=== PATIENT | female | born 1980 | race Caucasian/White ===

== ENCOUNTER 2017-07-08 19:12 | Emergency (ER) | payer MEDICAID ==
[~2017-07-08] VITALS: Ht 160 cm; Wt 86.2 kg
[~2017-07-08 19:12] MED LIST: ANTIBIOTIC; ANTIBIOTIC O500 U/GM TP; ATIVAN0.5 MG PO; ATORVASTATIN CA10 M1 PO; BACTRIM DS 8001 TA1 PO; BENADRYL25 M2 PO; BUSPAR10 MG; BUSPAR10 MG PO; CEPHALEXIN500 M1 PO; CIPRO500 MG PO; CIPROFLOXACIN500 MG PO; DOXEPIN HCL10 MG PO; EES PO; EES400 MG PO; FANAPT6 MG PO; FLAGYL500 MG PO; HYDROCODONE BIT1 T11 PO; KEFLEX500 MG PO; LOMOTIL 0.025 M1 TA1 PO; MACROBID100 M1 PO; MOTRIN800 MG PO; MULTIPLE VITAMI1 CAP PO; Motrin,Rufen800 MG PO; NEURONTIN100 MG PO; NKHM; OMEPRAZOLE40 MG PO; PHENERGAN W/DM120 ML PO; PHENERGAN25 M1 PO; PHENERGAN25 MG RC; PRILOSEC10 MG PO; PRILOSEC20 MG PO; PROVENTIL0.09 MG/AC IH; PYRIDIUM200 MG PO; SEPTRA DS 800 M1 TAB PO; SEROQUEL200 MG PO; SKELAXIN800 MG PO; TIZANIDINE4 MG PO; ULTRAM50 MG PO; VALIUM10 MG PO; VICODIN 5/500 505 MG PO; VICODIN 500 MG-1 TAB PO; VIIBRYD40; VITAMIN D1000 IU PO; Wellbutrin Xl150 MG PO; XANAX0.25 MG PO; XANAX1 MG PO; ZITHROMAX Z PA250 MG PO; ZOFRAN4 MG PO; ZYRTEC10 M1 PO
[2017-07-08 19:35] LABS: BILIRUBIN NEGATIVE (NEGATIVE); BLOOD NEGATIVE (NEGATIVE); CLARITY CLEAR (CLEAR); COLOR YELLOW (YELLOW); GLUCOSE NEGATIVE (NEGATIVE); KETONE NEGATIVE (NEGATIVE); LEUKO ESTERASE NEGATIVE (NEGATIVE); NITRITE NEGATIVE (NEGATIVE); SPECIFIC GRAVITY <= 1.005 (1.005-1.030); UROBILINOGEN 0.2 E.U./dl (0.2-1.0)
[2017-07-08 19:50] LABS: BACTERIA TRACE
[2017-07-08 19:53] LABS: BASO # 0.1 10*3/uL (0.0-0.1); BASO % 0.4 % (0.0-1.0); EOS # 0.1 10*3/uL (0.0-0.4); EOS % 0.9 % (1.0-4.0); HEMATOCRIT 39.2 % (37.0-47.0); LYMPH % 21.3 % (27.0-41.0); MEAN CELL VOLUME 84.1 fl (81.0-99.0); MEAN CORPUSCULAR HGB 27.9 pg (27.0-31.0); MEAN CORPUSCULAR HGB CONC 33.2 g/dl (33.0-37.0); MONO # 0.6 10*3/uL (0.1-1.0); MONO % 4.4 % (3.0-9.0); NEUT % 72.5 % (47.0-73.0); PLATELET COUNT AUTOMATED 334 10*3/uL (130-400); RED BLOOD COUNT 4.66 10*6/uL (4.10-5.10); RED CELL DISTRI WIDTH 14.7 % (0-14.5); WHITE BLOOD COUNT 13.8 10*3/uL (4.8-10.8)
[2017-07-08 20:12] LABS: ALBUMIN 3.3 gm/dl (3.1-4.5); ALKALINE PHOSPHATASE 142 U/L (45-117); BUN 5 mg/dl (7-24); CHLORIDE 106 mmol/L (98-107); CREATININE 0.57 mg/dL (0.55-1.02); LIPASE 118 U/L (73-393); POTASSIUM 3.6 mmol/L (3.5-5.1); SGOT/AST 26 IU/L (3-35); SGPT/ALT 51 U/L (12-78); SODIUM 136 mmol/L (136-145)
[2017-07-08 21:17] VITALS: BP 148/81
[2017-07-08] MEDS ORDERED: ZITHROMAX250 MG PO (22:59)
[2017-07-08] MEDS ORDERED: ZOFRAN ODT4 MG SL (22:59)
[2017-07-08] MEDS ORDERED: NORCO 5-325 TA1 EACH PO (22:59)
== END 2017-07-08 23:28 | disposition home or self-care (01) ==
LOC: ED 19:12
PROVIDERS: Emergency Medicine Emergency Medical Services
DX: R10.2 Pelvic and perineal pain (principal); J44.9 Chronic obstructive pulmonary disease, unspecified; E78.5 Hyperlipidemia, unspecified; F12.10 Cannabis abuse, uncomplicated; E66.9 Obesity, unspecified; Z98.890 Other specified postprocedural states; Z90.49 Acquired absence of other specified parts of digestive tract; Z98.51 Tubal ligation status; Z79.899 Other long term (current) drug therapy; Z88.6 Allergy status to analgesic agent; Z88.8 Allergy status to other drugs, medicaments and biological substances

== ENCOUNTER 2017-11-10 17:54 | Emergency (ER) | payer MEDICAID ==
[~2017-11-10 17:54] MED LIST changes: +ARIPIPRAZOLE15 MG PO; +DULOXETINE HCL60 MG PO; +NORCO 5-325 TA1 EACH PO; +SEPTDS PO; +UNITHROID25 MCG PO; +VALACYCLOVIR H500 M1 PO; +ZITHROMAX250 MG PO; +ZOFRAN ODT4 MG SL
[2017-11-10 17:56] VITALS: BP 111/67
[2017-11-10 19:02] LABS: BILIRUBIN NEGATIVE (NEGATIVE); BLOOD NEGATIVE (NEGATIVE); CLARITY SL CLOUDY (CLEAR); COLOR YELLOW (YELLOW); GLUCOSE NEGATIVE (NEGATIVE); KETONE NEGATIVE (NEGATIVE); LEUKO ESTERASE 2+ (NEGATIVE); NITRITE NEGATIVE (NEGATIVE); SPECIFIC GRAVITY <= 1.005 (1.005-1.030); UROBILINOGEN 0.2 E.U./dl (0.2-1.0)
[2017-11-10 19:06] LABS: BASO % 0.3 % (0.0-1.0); EOS # 0.2 10*3/uL (0.0-0.4); EOS % 1.1 % (1.0-4.0); HEMATOCRIT 38.4 % (37.0-47.0); HEMOGLOBIN 12.3 g/dl (12.0-16.0); LYMPH # 3.1 10*3/uL (1.3-4.4); MEAN CELL VOLUME 86.9 fl (81.0-99.0); MEAN CORPUSCULAR HGB 27.8 pg (27.0-31.0); MEAN PLATELET VOLUME 10.1 fl (9.6-12.3); MONO # 0.6 10*3/uL (0.1-1.0); MONO % 4.7 % (3.0-9.0); NEUT # 9.1 10*3/uL (2.3-7.9); NEUT % 69.6 % (47.0-73.0); PLATELET COUNT AUTOMATED 313 10*3/uL (130-400); RED BLOOD COUNT 4.42 10*6/uL (4.10-5.10); RED CELL DISTRI WIDTH 14.4 % (0-14.5); WHITE BLOOD COUNT 13.1 10*3/uL (4.8-10.8)
[2017-11-10 19:09] LABS: BACTERIA 1+
[2017-11-10 19:11] LABS: URINE AMPHETAMINES < 1000 (1000ng/ml); URINE BARBITURATES < 200 (200ng/ml); URINE BENZODIAZEPINES > 200 (200ng/ml); URINE CANNABINOIDS (THC) > 50 (50ng/ml); URINE COCAINE < 300 (300ng/ml); URINE METHADONE < 300 (300ng/ml); URINE OPIATES < 300 (300ng/ml); URINE PHENCYCLIDINE < 25 (25ng/ml)
[2017-11-10 19:22] LABS: ALBUMIN 3.4 gm/dl (3.1-4.5); ALKALINE PHOSPHATASE 124 U/L (45-117); BUN 8 mg/dl (7-24); CHLORIDE 105 mmol/L (98-107); CREATININE 0.66 mg/dL (0.55-1.02); POTASSIUM 3.8 mmol/L (3.5-5.1); SGOT/AST 14 IU/L (3-35); SGPT/ALT 26 U/L (12-78); SODIUM 140 mmol/L (136-145); TOTAL PROTEIN 6.9 gm/dL (6.4-8.2)
== END 2017-11-10 21:42 | disposition home or self-care (01) ==
LOC: ED 17:54
PROVIDERS: Emergency Medicine
DX: R56.9 Unspecified convulsions (principal); R51 Headache; F17.200 Nicotine dependence, unspecified, uncomplicated; F10.10 Alcohol abuse, uncomplicated; F41.9 Anxiety disorder, unspecified; J45.909 Unspecified asthma, uncomplicated; F32.9 Major depressive disorder, single episode, unspecified; J44.9 Chronic obstructive pulmonary disease, unspecified; E78.5 Hyperlipidemia, unspecified; Z88.6 Allergy status to analgesic agent; Z88.8 Allergy status to other drugs, medicaments and biological substances; Z79.899 Other long term (current) drug therapy; Z90.49 Acquired absence of other specified parts of digestive tract; Z98.51 Tubal ligation status

== ENCOUNTER 2017-11-30 17:21 | Emergency (ER) | payer MEDICAID ==
[~2017-11-30] VITALS: Wt 86.2 kg
[2017-11-30 17:46] LABS: BASO % 0.3 % (0.0-1.0); EOS # 0.2 10*3/uL (0.0-0.4); EOS % 1.1 % (1.0-4.0); HEMATOCRIT 37.6 % (37.0-47.0); HEMOGLOBIN 12.3 g/dl (12.0-16.0); LYMPH # 2.9 10*3/uL (1.3-4.4); LYMPH % 20.1 % (27.0-41.0); MEAN CELL VOLUME 85.6 fl (81.0-99.0); MEAN CORPUSCULAR HGB CONC 32.7 g/dl (33.0-37.0); MEAN PLATELET VOLUME 9.7 fl (9.6-12.3); MONO # 0.7 10*3/uL (0.1-1.0); MONO % 4.6 % (3.0-9.0); NEUT # 10.6 10*3/uL (2.3-7.9); NEUT % 73.3 % (47.0-73.0); PLATELET COUNT AUTOMATED 313 10*3/uL (130-400); RED BLOOD COUNT 4.39 10*6/uL (4.10-5.10); RED CELL DISTRI WIDTH 14.5 % (0-14.5); WHITE BLOOD COUNT 14.4 10*3/uL (4.8-10.8)
[2017-11-30 18:03] LABS: ALBUMIN 3.4 gm/dl (3.1-4.5); ALKALINE PHOSPHATASE 129 U/L (45-117); BUN 7 mg/dl (7-24); CHLORIDE 103 mmol/L (98-107); POTASSIUM 3.8 mmol/L (3.5-5.1); SGOT/AST 14 IU/L (3-35); SGPT/ALT 20 U/L (12-78); SODIUM 139 mmol/L (136-145); TOTAL PROTEIN 6.8 gm/dL (6.4-8.2)
[2017-11-30 18:05] LABS: TROPONIN I < 0.015 ng/ml (<0.045)
[2017-11-30 18:30] VITALS: BP 105/54
[2017-11-30] MEDS ORDERED: ROBITUSSIN DM 105 ML PO (18:39)
[2017-11-30] MEDS ORDERED: PREDNISONE20 M1 PO (18:39)
== END 2017-11-30 18:41 | disposition home or self-care (01) ==
LOC: ED 17:21
PROVIDERS: Nurse Practitioner Family
DX: J20.9 Acute bronchitis, unspecified (principal); F17.200 Nicotine dependence, unspecified, uncomplicated; J44.9 Chronic obstructive pulmonary disease, unspecified; E78.5 Hyperlipidemia, unspecified; Z98.890 Other specified postprocedural states; Z90.49 Acquired absence of other specified parts of digestive tract; Z98.51 Tubal ligation status; Z79.899 Other long term (current) drug therapy; Z88.6 Allergy status to analgesic agent; Z88.8 Allergy status to other drugs, medicaments and biological substances

== ENCOUNTER 2018-01-11 16:01 | Emergency (ER) | payer MEDICAID ==
[~2018-01-11] VITALS: Ht 160 cm; Wt 86.2 kg
[~2018-01-11 16:01] MED LIST changes: +PREDNISONE20 M1 PO; +ROBITUSSIN DM 105 ML PO
[2018-01-11 16:25] LABS: BILIRUBIN NEGATIVE (NEGATIVE); BLOOD NEGATIVE (NEGATIVE); CLARITY CLEAR (CLEAR); COLOR YELLOW (YELLOW); GLUCOSE NEGATIVE (NEGATIVE); KETONE NEGATIVE (NEGATIVE); LEUKO ESTERASE NEGATIVE (NEGATIVE); NITRITE NEGATIVE (NEGATIVE); SPECIFIC GRAVITY <= 1.005 (1.005-1.030); UROBILINOGEN 0.2 E.U./dl (0.2-1.0)
[2018-01-11 16:35] LABS: URINE AMPHETAMINES < 1000 (1000ng/ml); URINE BARBITURATES < 200 (200ng/ml); URINE BENZODIAZEPINES > 200 (200ng/ml); URINE CANNABINOIDS (THC) < 50 (50ng/ml); URINE COCAINE < 300 (300ng/ml); URINE METHADONE < 300 (300ng/ml); URINE OPIATES < 300 (300ng/ml)
[2018-01-11 16:38] LABS: URINE PHENCYCLIDINE < 25 (25ng/ml)
[2018-01-11 16:39] LABS: BASO # 0.1 10*3/uL (0.0-0.1); BASO % 0.4 % (0.0-1.0); EOS # 0.2 10*3/uL (0.0-0.4); EOS % 1.6 % (1.0-4.0); HEMATOCRIT 40.2 % (37.0-47.0); HEMOGLOBIN 12.8 g/dl (12.0-16.0); LYMPH # 2.5 10*3/uL (1.3-4.4); LYMPH % 20.8 % (27.0-41.0); MEAN CELL VOLUME 87.2 fl (81.0-99.0); MEAN CORPUSCULAR HGB 27.8 pg (27.0-31.0); MEAN CORPUSCULAR HGB CONC 31.8 g/dl (33.0-37.0); MEAN PLATELET VOLUME 9.8 fl (9.6-12.3); MONO # 0.6 10*3/uL (0.1-1.0); MONO % 4.6 % (3.0-9.0); NEUT # 8.7 10*3/uL (2.3-7.9); NEUT % 71.7 % (47.0-73.0); PLATELET COUNT AUTOMATED 337 10*3/uL (130-400); RED BLOOD COUNT 4.61 10*6/uL (4.10-5.10); RED CELL DISTRI WIDTH 14.9 % (0-14.5); WHITE BLOOD COUNT 12.2 10*3/uL (4.8-10.8)
[2018-01-11 16:43] LABS: RBC 0-2 rbc/hpf (0-2)
[2018-01-11 16:56] LABS: ALBUMIN 3.5 gm/dl (3.1-4.5); ALKALINE PHOSPHATASE 135 U/L (45-117); B-hCG (QUALITATIVE) NEGATIVE (NEGATIVE); BUN 7 mg/dl (7-24); CHLORIDE 104 mmol/L (98-107); CREATININE 0.68 mg/dL (0.55-1.02); POTASSIUM 3.9 mmol/L (3.5-5.1); SGOT/AST 21 IU/L (3-35); SGPT/ALT 41 U/L (12-78); SODIUM 138 mmol/L (136-145); TOTAL PROTEIN 7.1 gm/dL (6.4-8.2)
[2018-01-11 16:58] LABS: TROPONIN I < 0.015 ng/ml (<0.045)
[2018-01-11 17:10] VITALS: BP 128/68
== END 2018-01-11 17:41 | disposition home or self-care (01) ==
LOC: ED 16:01
PROVIDERS: Physician Assistant
DX: F41.9 Anxiety disorder, unspecified (principal); F17.200 Nicotine dependence, unspecified, uncomplicated; Z98.890 Other specified postprocedural states; Z90.49 Acquired absence of other specified parts of digestive tract; Z98.51 Tubal ligation status; Z79.899 Other long term (current) drug therapy; Z88.6 Allergy status to analgesic agent; Z88.8 Allergy status to other drugs, medicaments and biological substances

== ENCOUNTER 2018-05-21 19:04 | Emergency (ER) | payer MEDICAID ==
[~2018-05-21] VITALS: Ht 160 cm; Wt 89.4 kg
[~2018-05-21 19:04] MED LIST changes: +ABILIFY20 MG PO; -ARIPIPRAZOLE15 MG PO; -NEURONTIN100 MG PO; +NEURONTIN400 MG PO; +PROTONIX40 MG PO; -UNITHROID25 MCG PO; +UNITHROID50 MCG PO; +VALACYCLOVIR500 M1 PO
[2018-05-21 19:09] VITALS: BP 125/70
== END 2018-05-21 21:22 | disposition home or self-care (01) ==
LOC: ED 19:04
DX: S90.512A Abrasion, left ankle, initial encounter (principal); M25.522 Pain in left elbow; F17.200 Nicotine dependence, unspecified, uncomplicated; Z88.6 Allergy status to analgesic agent; Z88.8 Allergy status to other drugs, medicaments and biological substances; Z79.899 Other long term (current) drug therapy; V19.9XXA Pedal cyclist (driver) (passenger) injured in unspecified traffic accident, initial encounter; Y93.89 Activity, other specified; Y92.89 Other specified places as the place of occurrence of the external cause; Y99.8 Other external cause status

== ENCOUNTER 2018-06-11 04:16 | Inpatient (IN) | payer MEDICAID ==
[~2018-06-11] VITALS: Ht 160 cm; Wt 92.3 kg
[2018-06-11] VITALS (7 sets, daily range): BP systolic 103–119; BP diastolic 40–70
--- NOTE | ~2018-06-11 | EKG ---
[place], [place] ELECTROCARDIOGRAM REPORT NAME: MOE AUSTIN UNIT #: [id number] ROOM: 412 DOCTOR: GRIFFIN DRAFT REPORT BIRTHDATE: [birth year] [facility] Test Date: 2018-06-11 Test Time: 04:29:25 Pat Name: MOE AUSTIN Department: Room: 412 Gender: F Thermocouple Tester: Daysi Dalal : 1980 Requested By: SHEREE WHITE Order Number: [id number] Reading MD: Ming Tinsley MD Measurements Intervals [place] Rate: 75 P: 48 [place]: 173 QRS: 59 QRSD: 85 T: 47 QT: 403 QTc: 451 Interpretive Statements Sinus rhythm Borderline T abnormalities, anterior leads Compared to ECG 05/04/2018 15:46:32 No significant changes Electronically Signed On 06-11-2018 12:11:57 PDT by Ming Tinsley MD CM:EKGRPT:ELECTROCARDIOGRAM REPORT 0429 1211 SHEREE FREEMAN DRAFT REPORT SHEREE WHITE DO
--- NOTE | ~2018-06-11 | EKG ---
[place], [place] ELECTROCARDIOGRAM REPORT NAME: MOE AUSTIN UNIT #: [id number] ROOM: 412 DOCTOR: GRIFFIN DRAFT REPORT BIRTHDATE: [birth year] [facility] Test Date: 2018-06-11 Test Time: 07:08:16 Pat Name: MOE AUSTIN Department: Room: 412 Gender: F Car Spotter: Brittany Purcell : 1980 Requested By: SHEREE WHITE Order Number: [id number] Reading MD: Ming Tinsley MD Measurements Intervals [place] Rate: 72 P: 58 [place]: 173 QRS: 38 QRSD: 97 T: 71 QT: 409 QTc: 448 Interpretive Statements Sinus rhythm Borderline T abnormalities, anterior leads Compared to ECG 05/04/2018 15:46:32 No significant changes Electronically Signed On 06-11-2018 12:15:53 PDT by Ming Tinsley MD CM:EKGRPT:ELECTROCARDIOGRAM REPORT 0708 1215 SHEREE FREEMAN DRAFT REPORT SHEREE WHITE DO
--- NOTE | ~2018-06-11 | EKG ---
[place], [place] ELECTROCARDIOGRAM REPORT NAME: MEO AUSTIN UNIT #: [id number] ROOM: 412 DOCTOR: GRIFFIN DRAFT REPORT BIRTHDATE: [birth year] [facility] Test Date: 2018-06-11 Test Time: 10:27:47 Pat Name: MOE AUSTIN Department: Room: 412 Gender: F Rn Assessment: Brittany Purecll : 1980 Requested By: SHEREE WHITE Order Number: [id number] Reading MD: Ming Tinsley MD Measurements Intervals [place] Rate: 100 P: 48 [place]: 174 QRS: 43 QRSD: 82 T: 47 QT: 394 QTc: Interpretive Statements Sinus tachycardia Compared to ECG 05/04/2018 15:46:32 Sinus rhythm no longer present T-wave abnormality still present Electronically Signed On 06-12-2018 7:52:46 PDT by Ming Tinsley MD CM:EKGRPT:ELECTROCARDIOGRAM REPORT 1027 0752 SHEREE FREEMAN DRAFT REPORT SHEREE WHITE DO
--- NOTE | ~2018-06-11 | CON ---
[place], [place] REPORT OF CONSULTATION NAME: MEO AUSTIN [facility] #: [id number] UNIT #: [id number] ROOM: 412 DOCTOR: MIGNON CRAIG MD BIRTHDATE: [birth year] DOS: 06/11/2018 REASON FOR CONSULTATION: Chest pain. CLINICAL HISTORY: The patient is a 37-year-old patient with history of COPD, obesity, admitted for chest pain. Apparently, she woke up with chest pain at home, left-sided chest pain at rest, sharp pain. The pain is sharp with some radiation right to the arm. No associated nausea, diaphoresis, or shortness of breath, and no dizziness, no syncope. The patient had been having some recent cough intermittently most of the day, and also having some dizziness and sweating. She was in the hospital about a month ago and underwent exercise nuclear stress test, which was nonischemic. She denies exertional chest pains or dizziness. No palpitations, no PND, no orthopnea. She smokes about half pack a day. Cardiology was consulted for further recommendation due to her left-sided chest pain, which is at rest. No fever and chills. No nausea, vomiting, diarrhea. No headache. No tingling, numbness or weakness. No bladder or bowel symptoms. REVIEW OF SYSTEMS: Review of the 10 system negative except as mentioned above. PAST MEDICAL HISTORY: 1. COPD. 2. Asthma. 3. Non-morbid obesity. 4. Seizures. 5. Depression. 6. Hypothyroidism and dyslipidemia. PAST SURGICAL HISTORY: History of , history of appendicectomy, history of cholecystectomy. ALLERGIES: THE PATIENT IS ALLERGIC TO TYLENOL AND DARVOCET. SOCIAL HISTORY: The patient does not use drugs, social drinker, does smoke half pack a day of cigarettes. FAMILY HISTORY: Father in his mid 40s of diabetes. Mother is alive, had breast cancer. HOME MEDICATIONS: Reviewed. PHYSICAL EXAMINATION: VITAL SIGNS: Blood pressure 103/53, pulse 85, respirations 19, weight 92.2 kilos with a BMI of 36. GENERAL: Alert, comfortable, in no acute distress. NECK: Supple. No distended neck veins. No carotid bruit. CHEST: Symmetrical, nontender. LUNGS: Clear to auscultation bilaterally. HEART: Regular rhythm. No S3. No palpable thrills. ABDOMEN: Benign, obese, nontender. Bowel sounds normal. [place], [place] REPORT OF CONSULTATION NAME: MOE AUSTIN UNIT #: [id number] ROOM: 412 DOCTOR: MIGNON CRAIG MD BIRTHDATE: [birth year] EXTREMITIES: Showed no edema. Distal pulses palpable. SKIN: Warm and dry. No cyanosis, no clubbing. RECTAL: Deferred. GENITOURINARY: Deferred. NEUROLOGIC: The patient is alert, oriented. No focal neurologic deficit. REVIEW OF THE DIAGNOSTIC TESTS: Her EKG shows sinus rhythm, nonspecific ST changes. LABORATORY DATA: Reviewed. CBC, chemistry, cardiac enzymes reviewed. Chest x-ray is unremarkable. Exercise nuclear stress test in April 2018 was nonischemic. Patient did treadmill without chest pain and a low risk Gould treadmill score. IMPRESSION: 1. Atypical chest pain, myocardial infarction ruled out, nonischemic stress test April 2018. 2. Cough, positive due to her chronic obstructive pulmonary disease exacerbation and tobacco-related bronchitis. 3. Non-morbid obesity. 4. Tobacco smoking. 5. Seizure disorder. 6. Acid reflux. 7. Dyslipidemia. RECOMMENDATIONS: 1. The patient has nonexertional chest pain. Chest pain appears to be atypical, mostly musculoskeletal from her cough. 2. Risk factor modification to quit smoking and also diet, exercise, weight loss discussed. 3. No further cardiac testing at this time. 4. Cardiology will sign off and please call us if needed. MIGNON CRAIG MD CM:CONSTR:REPORT OF CONSULTATION 1213 08/04/18 0813 interface
[2018-06-11 04:40] LABS: BASO # 0.1 10*3/uL (0.0-0.1); BASO % 0.4 % (0.0-1.0); EOS # 0.2 10*3/uL (0.0-0.4); EOS % 1.7 % (1.0-4.0); HEMATOCRIT 36.8 % (37.0-47.0); HEMOGLOBIN 11.6 g/dl (12.0-16.0); LYMPH % 24.2 % (27.0-41.0); MEAN CELL VOLUME 85.2 fl (81.0-99.0); MEAN CORPUSCULAR HGB 26.9 pg (27.0-31.0); MEAN CORPUSCULAR HGB CONC 31.5 g/dl (33.0-37.0); MEAN PLATELET VOLUME 9.4 fl (9.6-12.3); MONO # 0.5 10*3/uL (0.1-1.0); NEUT # 8.5 10*3/uL (2.3-7.9); PLATELET COUNT AUTOMATED 364 10*3/uL (130-400); RED BLOOD COUNT 4.32 10*6/uL (4.10-5.10); RED CELL DISTRI WIDTH 14.6 % (0-14.5); WHITE BLOOD COUNT 12.3 10*3/uL (4.8-10.8)
[2018-06-11 04:55] LABS: ALBUMIN 3.2 gm/dl (3.1-4.5); ALKALINE PHOSPHATASE 121 U/L (45-117); BUN 5 mg/dl (7-24); CHLORIDE 106 mmol/L (98-107); CREATININE 0.69 mg/dL (0.55-1.02); POTASSIUM 3.4 mmol/L (3.5-5.1); SGOT/AST 17 IU/L (3-35); SGPT/ALT 28 U/L (12-78); SODIUM 140 mmol/L (136-145); TOTAL PROTEIN 6.8 gm/dL (6.4-8.2)
[2018-06-11 04:58] LABS: TROPONIN I < 0.015 ng/ml (<0.045)
[2018-06-11 05:06] LABS: ACT PARTIAL THROMBO TIME 25.8 SECONDS (20.8-31.5); INTERNATIONAL NORM RATIO 0.9 (2.0-3.5)
[2018-06-11] MEDS ORDERED: PROAIR HFA8.5 GM INH (06:09)
[2018-06-11] MEDS ORDERED: SYMB80 INH (06:10)
[2018-06-11 07:22] LABS: BILIRUBIN NEGATIVE (NEGATIVE); BLOOD NEGATIVE (NEGATIVE); CLARITY SL CLOUDY (CLEAR); COLOR YELLOW (YELLOW); GLUCOSE NEGATIVE (NEGATIVE); KETONE NEGATIVE (NEGATIVE); LEUKO ESTERASE NEGATIVE (NEGATIVE); NITRITE POSITIVE (NEGATIVE); SPECIFIC GRAVITY <= 1.005 (1.005-1.030); UROBILINOGEN 0.2 E.U./dl (0.2-1.0)
[2018-06-11 08:00] LABS: BACTERIA 1+
[2018-06-12] VITALS: BP 120/65
[2018-06-12 06:39] LABS: HEMATOCRIT 38.9 % (37.0-47.0); HEMOGLOBIN 12.2 g/dl (12.0-16.0); MEAN CELL VOLUME 86.4 fl (81.0-99.0); MEAN CORPUSCULAR HGB 27.1 pg (27.0-31.0); MEAN CORPUSCULAR HGB CONC 31.4 g/dl (33.0-37.0); MEAN PLATELET VOLUME 9.7 fl (9.6-12.3); PLATELET COUNT AUTOMATED 419 10*3/uL (130-400); WHITE BLOOD COUNT 20.1 10*3/uL (4.8-10.8)
[2018-06-12 06:46] LABS: BUN 9 mg/dl (7-24); CHLORIDE 104 mmol/L (98-107); CHOLESTEROL 251 mg/dL (<200); CREATININE 0.84 mg/dL (0.55-1.02); PHOSPHOROUS 2.7 mg/dL (2.5-4.9); SODIUM 138 mmol/L (136-145); TRIGLYCERIDES 180 mg/dl (<150); VLDL CHOLESTEROL 36 mg/dL (6-40)
[2018-06-12 06:54] LABS: FREE T4 0.94 ng/dl (0.76-1.46); HDL CHOLESTEROL 29 mg/dl (40-60); LDL CHOLESTEROL 186 mg/dL (9-159); THYROID STIM HORMONE (HS) 0.584 uIU/ml (0.358-4.75)
[2018-06-12 06:58] LABS: POTASSIUM 4.7 mmol/L (3.5-5.1)
[2018-06-12 07:23] LABS: PLATELET SUFFICIENCY HIGH (NORMAL); TOTAL CELLS COUNTED 100 #CELLS
[2018-06-12 07:34] LABS: VITAMIN D, 25-HYDROXY 28.8 ng/mL (30-100)
[2018-06-12 08:00] VITALS: BP 113/56
[2018-06-12 12:00] VITALS: BP 105/60
[2018-06-12 16:00] VITALS: BP 103/69
[2018-06-12 20:00] VITALS: BP 110/62
[2018-06-13] VITALS: BP 132/74
[2018-06-13 08:00] VITALS: BP 121/75
[2018-06-13] MEDS ORDERED: PREDNISONE10 MG PO (11:36)
[2018-06-13] MEDS ORDERED: NATURE'S BLEND F1 MG PO (11:36)
[2018-06-13] MEDS ORDERED: VITAMIN D-32000 UNIT PO (11:36)
[2018-06-13] MEDS ORDERED: DOXYCYCLINE100 M3 PO (11:36)
[2018-06-13 12:00] VITALS: BP 111/68
== END 2018-06-13 12:19 | disposition home or self-care (01) | DRG 191 ==
LOC: ED 04:16 → EDHOLD 05:25 → 4E 05:25
PROVIDERS: Emergency Medicine; Internal Medicine
DX: J44.1 Chronic obstructive pulmonary disease with (acute) exacerbation (principal); N12 Tubulo-interstitial nephritis, not specified as acute or chronic; M94.0 Chondrocostal junction syndrome [Tietze]; D72.829 Elevated white blood cell count, unspecified; D64.9 Anemia, unspecified; E87.6 Hypokalemia; R73.9 Hyperglycemia, unspecified; R74.8 Abnormal levels of other serum enzymes; J45.909 Unspecified asthma, uncomplicated; F41.9 Anxiety disorder, unspecified; K21.9 Gastro-esophageal reflux disease without esophagitis; E55.9 Vitamin D deficiency, unspecified; E53.8 Deficiency of other specified B group vitamins; F32.9 Major depressive disorder, single episode, unspecified; E66.01 Morbid (severe) obesity due to excess calories; E03.9 Hypothyroidism, unspecified; E78.5 Hyperlipidemia, unspecified; G40.909 Epilepsy, unspecified, not intractable, without status epilepticus; R07.89 Other chest pain; Z78.9 Other specified health status; Z88.8 Allergy status to other drugs, medicaments and biological substances; Z79.899 Other long term (current) drug therapy; Z90.49 Acquired absence of other specified parts of digestive tract; Z98.51 Tubal ligation status; Z83.3 Family history of diabetes mellitus; Z80.3 Family history of malignant neoplasm of breast; Z71.6 Tobacco abuse counseling; Z72.0 Tobacco use; Z82.5 Family history of asthma and other chronic lower respiratory diseases; Z82.0 Family history of epilepsy and other diseases of the nervous system; Z68.36 Body mass index [BMI] 36.0-36.9, adult

== ENCOUNTER 2018-06-22 14:38 | Emergency (ER) | payer MEDICAID ==
[~2018-06-22] VITALS: Ht 160 cm; Wt 93.9 kg
--- NOTE | ~2018-06-22 | EKG ---
[place], [place] ELECTROCARDIOGRAM REPORT NAME: MOE AUSTIN UNIT #: [id number] ROOM: DOCTOR: GRIFFIN DRAFT REPORT BIRTHDATE: [birth year] [facility] Test Date: 2018-06-22 Test Time: 15:19:24 Pat Name: MOE AUSTIN Department: Room: Gender: F Sales Correspondent: MAGEN : 1980 Requested By: ABDI HOLDER PA-C Order Number: [id number] Reading MD: Measurements Intervals [place] Rate: 89 P: 37 [place]: 144 QRS: 47 QRSD: 92 T: 58 QT: 329 QTc: 401 Interpretive Statements Sinus rhythm Compared to ECG 06/11/2018 10:27:47 Sinus tachycardia no longer present CM:EKGRPT:ELECTROCARDIOGRAM REPORT 1519 1221 [facility] ABDI HOLDER PA-C
[~2018-06-22 14:38] MED LIST changes: +DOXYCYCLINE100 M3 PO; +NATURE'S BLEND F1 MG PO; +PREDNISONE10 MG PO; +PROAIR HFA8.5 GM INH; +SYMB80 INH; +VITAMIN D-32000 UNIT PO
[2018-06-22 15:22] LABS: HEMATOCRIT 40.6 % (37.0-47.0); HEMOGLOBIN 12.8 g/dl (12.0-16.0); MEAN CELL VOLUME 86.4 fl (81.0-99.0); MEAN CORPUSCULAR HGB 27.2 pg (27.0-31.0); MEAN CORPUSCULAR HGB CONC 31.5 g/dl (33.0-37.0); MEAN PLATELET VOLUME 9.8 fl (9.6-12.3); PLATELET COUNT AUTOMATED 337 10*3/uL (130-400); RED CELL DISTRI WIDTH 16.3 % (0-14.5); WHITE BLOOD COUNT 25.2 10*3/uL (4.8-10.8)
[2018-06-22 15:29] LABS: INTERNATIONAL NORM RATIO 0.9 (2.0-3.5)
[2018-06-22 15:37] LABS: ALBUMIN 3.4 gm/dl (3.1-4.5); ALKALINE PHOSPHATASE 105 U/L (45-117); BUN 11 mg/dl (7-24); CHLORIDE 103 mmol/L (98-107); CREATININE 0.73 mg/dL (0.55-1.02); POTASSIUM 4.2 mmol/L (3.5-5.1); SGOT/AST 11 IU/L (3-35); SGPT/ALT 43 U/L (12-78); SODIUM 137 mmol/L (136-145)
[2018-06-22 15:41] LABS: PLATELET SUFFICIENCY NORMAL (NORMAL); TOTAL CELLS COUNTED 100 #CELLS
[2018-06-22 15:42] LABS: BURR CELLS FEW; POLYCHROMASIA SLIGHT
[2018-06-22 15:50] LABS: BILIRUBIN NEGATIVE (NEGATIVE); BLOOD NEGATIVE (NEGATIVE); CLARITY CLEAR (CLEAR); COLOR YELLOW (YELLOW); GLUCOSE 2+ (NEGATIVE); KETONE NEGATIVE (NEGATIVE); LEUKO ESTERASE NEGATIVE (NEGATIVE); NITRITE NEGATIVE (NEGATIVE); SPECIFIC GRAVITY >= 1.030 (1.005-1.030); UROBILINOGEN 0.2 E.U./dl (0.2-1.0)
[2018-06-22 15:51] LABS: TROPONIN I < 0.015 ng/ml (<0.045)
[2018-06-22 15:59] LABS: URINE AMPHETAMINES < 1000 (1000ng/ml); URINE BARBITURATES < 200 (200ng/ml); URINE BENZODIAZEPINES > 200 (200ng/ml); URINE CANNABINOIDS (THC) < 50 (50ng/ml); URINE COCAINE < 300 (300ng/ml); URINE METHADONE < 300 (300ng/ml); URINE OPIATES < 300 (300ng/ml)
[2018-06-22 16:00] LABS: URINE PHENCYCLIDINE < 25 (25ng/ml)
[2018-06-22 16:10] LABS: EPITHELIAL CELLS 30-35
[2018-06-22 16:11] LABS: BACTERIA TRACE; WBC 0-2 wbc/hpf (0-5)
[2018-06-22 16:42] VITALS: BP 118/69
[2018-06-22] MEDS ORDERED: HYDROXYZINE HCL25 MG PO (16:53)
== END 2018-06-22 17:02 | disposition home or self-care (01) ==
LOC: ED 14:38
PROVIDERS: Physician Assistant
DX: F41.0 Panic disorder [episodic paroxysmal anxiety] (principal); J44.9 Chronic obstructive pulmonary disease, unspecified; F17.200 Nicotine dependence, unspecified, uncomplicated; Z88.6 Allergy status to analgesic agent; Z79.899 Other long term (current) drug therapy; Z90.49 Acquired absence of other specified parts of digestive tract; Z98.51 Tubal ligation status

== ENCOUNTER 2018-08-29 20:42 | Emergency (ER) | payer MEDICAID ==
[~2018-08-29] VITALS: Ht 160 cm; Wt 95.3 kg
--- NOTE | ~2018-08-29 | EKG ---
[place], [place] ELECTROCARDIOGRAM REPORT NAME: MOE AUSTIN UNIT #: [id number] ROOM: DOCTOR: EPIPHANY DRAFT REPORT BIRTHDATE: [birth year] [facility] Test Date: 2018-08-29 Test Time: 21:10:56 Pat Name: MOE AUSTIN Department: ER Room: Gender: F Division Field Inspector: Sandi Sullivan : 1980 Requested By: HONORIO LUNA Order Number: [id number] Reading MD: Jerome Arreola MD Measurements Intervals [place] Rate: 88 P: 55 [place]: 145 QRS: 52 QRSD: 82 T: 52 QT: 363 QTc: 440 Interpretive Statements Sinus rhythm Low voltage, precordial leads Borderline T abnormalities, anterior leads Compared to ECG 07/28/2018 22:14:46 T-wave abnormality now present Electronically Signed On 09-01-2018 12:32:19 PST by Jerome Arreola MD CM:EKGRPT:ELECTROCARDIOGRAM REPORT 1232 HONORIO LUNA MD EPIPHANY DRAFT REPORT HONORIO LUNA MD
[~2018-08-29 20:42] MED LIST changes: +HYDROXYZINE HCL25 MG PO
[2018-08-29] MEDS ORDERED: ATIVAN1 MG PO ×2 (20:46→23:25)
[2018-08-29 21:50] LABS: ALBUMIN 3.5 gm/dl (3.1-4.5); ALKALINE PHOSPHATASE 131 U/L (45-117); BUN 2 mg/dl (7-24); CHLORIDE 104 mmol/L (98-107); CREATININE 0.66 mg/dL (0.55-1.02); LIPASE 90 U/L (73-393); POTASSIUM 3.5 mmol/L (3.5-5.1); SGOT/AST 35 IU/L (3-35); SGPT/ALT 62 U/L (12-78); SODIUM 140 mmol/L (136-145); TOTAL PROTEIN 6.9 gm/dL (6.4-8.2)
[2018-08-29 21:55] LABS: TROPONIN I < 0.015 ng/ml (<0.045)
[2018-08-29 22:00] LABS: BILIRUBIN NEGATIVE (NEGATIVE); BLOOD NEGATIVE (NEGATIVE); CLARITY CLEAR (CLEAR); COLOR YELLOW (YELLOW); GLUCOSE NEGATIVE (NEGATIVE); KETONE NEGATIVE (NEGATIVE); LEUKO ESTERASE NEGATIVE (NEGATIVE); NITRITE NEGATIVE (NEGATIVE); PH 6.5 (5.0-9.0); SPECIFIC GRAVITY <= 1.005 (1.005-1.030); UROBILINOGEN 0.2 E.U./dl (0.2-1.0)
[2018-08-29 22:07] LABS: WBC 0-2 wbc/hpf (0-5)
[2018-08-29 22:08] LABS: BASO # 0.1 10*3/uL (0.0-0.1); BASO % 0.4 % (0.0-1.0); EOS # 0.2 10*3/uL (0.0-0.4); EOS % 1.6 % (1.0-4.0); HEMOGLOBIN 12.8 g/dl (12.0-16.0); LYMPH # 3.4 10*3/uL (1.3-4.4); LYMPH % 25.6 % (27.0-41.0); MEAN CORPUSCULAR HGB 26.9 pg (27.0-31.0); MONO # 0.6 10*3/uL (0.1-1.0); MONO % 4.2 % (3.0-9.0); NEUT # 8.9 10*3/uL (2.3-7.9); NEUT % 67.7 % (47.0-73.0); PLATELET COUNT AUTOMATED 420 10*3/uL (130-400); RED BLOOD COUNT 4.76 10*6/uL (4.10-5.10); RED CELL DISTRI WIDTH 14.6 % (0-14.5); WHITE BLOOD COUNT 13.1 10*3/uL (4.8-10.8)
[2018-08-29 22:43] VITALS: BP 133/86
== END 2018-08-29 23:27 | disposition home or self-care (01) ==
LOC: ED 20:42
PROVIDERS: Emergency Medicine Emergency Medical Services
DX: R56.9 Unspecified convulsions (principal); F41.9 Anxiety disorder, unspecified; F43.10 Post-traumatic stress disorder, unspecified; R51 Headache; J44.9 Chronic obstructive pulmonary disease, unspecified; K21.9 Gastro-esophageal reflux disease without esophagitis; E78.5 Hyperlipidemia, unspecified; E03.9 Hypothyroidism, unspecified; E66.9 Obesity, unspecified; F17.200 Nicotine dependence, unspecified, uncomplicated; Z88.6 Allergy status to analgesic agent; Z88.8 Allergy status to other drugs, medicaments and biological substances; Z79.2 Long term (current) use of antibiotics; Z79.899 Other long term (current) drug therapy; Z90.49 Acquired absence of other specified parts of digestive tract

== ENCOUNTER 2018-10-03 14:24 | Emergency (ER) | payer MEDICAID ==
[~2018-10-03] VITALS: Ht 160 cm; Wt 92.5 kg
--- NOTE | ~2018-10-03 | EKG ---
[place], [place] ELECTROCARDIOGRAM REPORT NAME: MOE AUSTIN UNIT #: [id number] ROOM: DOCTOR: EPIPHANY DRAFT REPORT BIRTHDATE: [birth year] [facility] Test Date: 2018-10-03 Test Time: 15:00:23 Pat Name: MOE AUSTIN Department: ER Room: Gender: F Tax Collector: Veronica Richey : 1980 Requested By: NOVA MONTALVO Order Number: [id number] Reading MD: Osiel Dunlap MD Measurements Intervals [place] Rate: 87 P: 26 [place]: 161 QRS: 41 QRSD: 82 T: 42 QT: 315 QTc: 379 Interpretive Statements Sinus rhythm Borderline T abnormalities, anterior leads Compared to ECG 08/29/2018 21:10:56 No significant changes Electronically Signed On 10-06-2018 15:33:17 PST by Osiel Dunlap MD CM:EKGRPT:ELECTROCARDIOGRAM REPORT 1500 1533 NOVA MONTALVO EPIPHANY DRAFT REPORT NOVA MONTALVO
[2018-10-03 14:24] VITALS: BP 150/87
[~2018-10-03 14:24] MED LIST changes: +ATIVAN1 MG PO
[2018-10-03 14:58] LABS: BILIRUBIN NEGATIVE (NEGATIVE); BLOOD NEGATIVE (NEGATIVE); CLARITY CLEAR (CLEAR); COLOR YELLOW (YELLOW); GLUCOSE NEGATIVE (NEGATIVE); KETONE NEGATIVE (NEGATIVE); LEUKO ESTERASE NEGATIVE (NEGATIVE); NITRITE NEGATIVE (NEGATIVE); PH 6.5 (5.0-9.0); SPECIFIC GRAVITY <= 1.005 (1.005-1.030); UROBILINOGEN 0.2 E.U./dl (0.2-1.0)
[2018-10-03 15:04] LABS: BACTERIA 1+; RBC 0-2 rbc/hpf (0-2)
[2018-10-03 15:05] LABS: URINE AMPHETAMINES < 1000 (1000ng/ml); URINE BARBITURATES < 200 (200ng/ml); URINE BENZODIAZEPINES < 200 (200ng/ml); URINE CANNABINOIDS (THC) < 50 (50ng/ml); URINE COCAINE < 300 (300ng/ml); URINE METHADONE < 300 (300ng/ml); URINE OPIATES < 300 (300ng/ml)
[2018-10-03 15:06] LABS: URINE PHENCYCLIDINE < 25 (25ng/ml)
[2018-10-03 15:07] LABS: BASO # 0.1 10*3/uL (0.0-0.1); BASO % 0.4 % (0.0-1.0); EOS # 0.1 10*3/uL (0.0-0.4); EOS % 0.9 % (1.0-4.0); HEMATOCRIT 42.2 % (37.0-47.0); HEMOGLOBIN 13.5 g/dl (12.0-16.0); LYMPH # 3.1 10*3/uL (1.3-4.4); LYMPH % 22.7 % (27.0-41.0); MEAN CELL VOLUME 83.7 fl (81.0-99.0); MEAN CORPUSCULAR HGB 26.8 pg (27.0-31.0); MEAN PLATELET VOLUME 9.9 fl (9.6-12.3); MONO # 0.7 10*3/uL (0.1-1.0); MONO % 5.1 % (3.0-9.0); NEUT # 9.7 10*3/uL (2.3-7.9); NEUT % 70.4 % (47.0-73.0); PLATELET COUNT AUTOMATED 446 10*3/uL (130-400); RED BLOOD COUNT 5.04 10*6/uL (4.10-5.10); RED CELL DISTRI WIDTH 14.4 % (0-14.5); WHITE BLOOD COUNT 13.8 10*3/uL (4.8-10.8)
[2018-10-03 15:19] LABS: ACT PARTIAL THROMBO TIME 23.8 SECONDS (20.8-31.5)
[2018-10-03 15:23] LABS: ALBUMIN 3.9 gm/dl (3.1-4.5); ALKALINE PHOSPHATASE 145 U/L (45-117); BUN 4 mg/dl (7-24); CHLORIDE 105 mmol/L (98-107); CREATININE 0.61 mg/dL (0.55-1.02); POTASSIUM 3.9 mmol/L (3.5-5.1); SGOT/AST 41 IU/L (3-35); SGPT/ALT 53 U/L (12-78); SODIUM 138 mmol/L (136-145); TOTAL PROTEIN 7.7 gm/dL (6.4-8.2)
[2018-10-03 15:24] LABS: TROPONIN I < 0.015 ng/ml (<0.045)
== END 2018-10-03 16:28 | disposition home or self-care (01) ==
LOC: ED 14:24
PROVIDERS: Nurse Practitioner Family
DX: G40.909 Epilepsy, unspecified, not intractable, without status epilepticus (principal); R03.0 Elevated blood-pressure reading, without diagnosis of hypertension; E78.5 Hyperlipidemia, unspecified; J44.9 Chronic obstructive pulmonary disease, unspecified; E66.9 Obesity, unspecified; E03.9 Hypothyroidism, unspecified; K21.9 Gastro-esophageal reflux disease without esophagitis; F17.200 Nicotine dependence, unspecified, uncomplicated; Z68.35 Body mass index [BMI] 35.0-35.9, adult; Z79.899 Other long term (current) drug therapy

== ENCOUNTER 2019-04-08 19:47 | Emergency (ER) | payer MEDICAID ==
[~2019-04-08] VITALS: Ht 160 cm; Wt 90.7 kg
--- NOTE | ~2019-04-08 | EKG ---
[place], [place] ELECTROCARDIOGRAM REPORT NAME: MOE AUSTIN UNIT #: [id number] ROOM: DOCTOR: EPIPHANY DRAFT REPORT BIRTHDATE: [birth year] [facility] Test Date: 2019-04-08 Test Time: 19:51:05 Pat Name: MOE AUSTIN Department: Room: Gender: F Iphone Developer: : 1980 Requested By: HONORIO LUNA Order Number: [id number] Reading MD: Ming Tinsley Measurements Intervals [place] Rate: 80 P: 39 MD: 174 QRS: 40 QRSD: 98 T: 43 QT: 382 QTc: 441 Interpretive Statements Sinus rhythm Borderline T abnormalities, anterior leads Baseline wander in lead(s) I Compared to ECG 10/03/2018 15:00:23 No significant changes Electronically Signed On 04-09-2019 6:28:07 PDT by Ming Tinsley CM:EKGRPT:ELECTROCARDIOGRAM REPORT 50 7 HONORIO LUNA MD EPIPHANY DRAFT REPORT HONORIO LUNA MD
[2019-04-08 20:14] LABS: BASO % 0.3 % (0.0-1.0); EOS # 0.2 10*3/uL (0.0-0.4); EOS % 1.4 % (1.0-4.0); HEMATOCRIT 36.5 % (37.0-47.0); HEMOGLOBIN 11.2 g/dl (12.0-16.0); LYMPH # 2.7 10*3/uL (1.3-4.4); LYMPH % 22.6 % (27.0-41.0); MEAN CORPUSCULAR HGB 25.2 pg (27.0-31.0); MEAN CORPUSCULAR HGB CONC 30.7 g/dl (33.0-37.0); MEAN PLATELET VOLUME 9.6 fl (9.6-12.3); MONO # 0.5 10*3/uL (0.1-1.0); MONO % 4.4 % (3.0-9.0); NEUT # 8.3 10*3/uL (2.3-7.9); NEUT % 70.6 % (47.0-73.0); PLATELET COUNT AUTOMATED 377 10*3/uL (130-400); RED BLOOD COUNT 4.45 10*6/uL (4.10-5.10); RED CELL DISTRI WIDTH 14.7 % (0-14.5); WHITE BLOOD COUNT 11.8 10*3/uL (4.8-10.8)
[2019-04-08 20:42] LABS: ALBUMIN 3.3 gm/dl (3.1-4.5); ALKALINE PHOSPHATASE 122 U/L (45-117); BUN 7 mg/dl (7-24); CHLORIDE 106 mmol/L (98-107); CREATININE 0.58 mg/dL (0.55-1.02); SGOT/AST 16 IU/L (3-35); SGPT/ALT 25 U/L (12-78); SODIUM 139 mmol/L (136-145); TOTAL PROTEIN 6.7 gm/dL (6.4-8.2)
[2019-04-08 20:44] LABS: ACT PARTIAL THROMBO TIME 26.8 SECONDS (20.0-32.1); INTERNATIONAL NORM RATIO 0.9 (2.0-3.5)
[2019-04-08 20:45] LABS: TROPONIN I < 0.015 ng/ml (<0.045)
[2019-04-08 20:58] LABS: ABG BASE EXCESS 1.6 mmol/L (-2.0-2.0); ABG HCO3 25.8 mmol/l (22-26); ABG O2 SATURATION 96.8 % (95-97); ARTERIAL BLOOD GAS PCO2 40.6 mmHg (35-45); ARTERIAL BLOOD GAS PH 7.417 (7.35-7.45); ARTERIAL BLOOD GAS PO2 85.6 mmHg (80-90)
[2019-04-08 21:01] LABS: BILIRUBIN NEGATIVE (NEGATIVE); BLOOD NEGATIVE (NEGATIVE); CLARITY SL CLOUDY (CLEAR); COLOR YELLOW (YELLOW); GLUCOSE NEGATIVE (NEGATIVE); KETONE NEGATIVE (NEGATIVE); LEUKO ESTERASE NEGATIVE (NEGATIVE); NITRITE NEGATIVE (NEGATIVE); PH 6.5 (5.0-9.0); SPECIFIC GRAVITY <= 1.005 (1.005-1.030); UROBILINOGEN 0.2 E.U./dl (0.2-1.0)
[2019-04-08 21:11] LABS: BACTERIA 1+; EPITHELIAL CELLS 31-40
[2019-04-08] MEDS ORDERED: DEPAKOTE500 MG PO (22:34)
[2019-04-08] MEDS ORDERED: Motrin,Rufen800 MG PO (22:34)
[2019-04-08 22:38] VITALS: BP 107/51
== END 2019-04-08 23:34 | disposition home or self-care (01) ==
LOC: ED 19:47
PROVIDERS: Emergency Medicine Emergency Medical Services
DX: G40.909 Epilepsy, unspecified, not intractable, without status epilepticus (principal); M94.0 Chondrocostal junction syndrome [Tietze]; M54.2 Cervicalgia; R42 Dizziness and giddiness; R11.2 Nausea with vomiting, unspecified; R07.81 Pleurodynia; J44.9 Chronic obstructive pulmonary disease, unspecified; K21.9 Gastro-esophageal reflux disease without esophagitis; E78.5 Hyperlipidemia, unspecified; E03.9 Hypothyroidism, unspecified; E66.9 Obesity, unspecified; F17.200 Nicotine dependence, unspecified, uncomplicated; Z68.35 Body mass index [BMI] 35.0-35.9, adult; Z88.6 Allergy status to analgesic agent; Z88.8 Allergy status to other drugs, medicaments and biological substances; Z79.899 Other long term (current) drug therapy; Z79.2 Long term (current) use of antibiotics

== ENCOUNTER 2019-04-22 21:01 | Emergency (ER) | payer MEDICAID ==
[~2019-04-22] VITALS: Ht 160 cm; Wt 90.7 kg
--- NOTE | ~2019-04-22 | EKG ---
[place], [place] ELECTROCARDIOGRAM REPORT NAME: MOE AUSTIN UNIT #: [id number] ROOM: DOCTOR: EPIPHANY DRAFT REPORT BIRTHDATE: [birth year] [facility] Test Date: 2019-04-22 Test Time: 21:04:28 Pat Name: MOE AUSTIN Department: Room: Gender: F Retail Associate: : 1980 Requested By: HONORIO LUNA Order Number: [id number] Reading MD: Measurements Intervals [place] Rate: 86 P: 44 [place]: 154 QRS: 47 QRSD: 91 T: 61 QT: 355 QTc: 425 Interpretive Statements Sinus rhythm Baseline wander in lead(s) V6 Compared to ECG 04/08/2019 19:51:05 T-wave abnormality no longer present CM:EKGRPT:ELECTROCARDIOGRAM REPORT 03 180 HONORIO FROSTBANNER DRAFT REPORT HONORIO LUNA MD
[~2019-04-22 21:01] MED LIST changes: +DEPAKOTE500 MG PO
[2019-04-22] MEDS ORDERED: CLONAZEPAM0.5 M2 PO (21:09)
[2019-04-22 21:11] VITALS: BP 112/49
[2019-04-22 21:34] LABS: BASO % 0.3 % (0.0-1.0); EOS # 0.2 10*3/uL (0.0-0.4); EOS % 1.1 % (1.0-4.0); HEMATOCRIT 35.6 % (37.0-47.0); HEMOGLOBIN 11.1 g/dl (12.0-16.0); LYMPH # 2.9 10*3/uL (1.3-4.4); LYMPH % 20.9 % (27.0-41.0); MEAN CELL VOLUME 82.4 fl (81.0-99.0); MEAN CORPUSCULAR HGB 25.7 pg (27.0-31.0); MEAN CORPUSCULAR HGB CONC 31.2 g/dl (33.0-37.0); MEAN PLATELET VOLUME 9.8 fl (9.6-12.3); MONO # 0.7 10*3/uL (0.1-1.0); MONO % 4.7 % (3.0-9.0); NEUT # 10.1 10*3/uL (2.3-7.9); NEUT % 72.4 % (47.0-73.0); PLATELET COUNT AUTOMATED 347 10*3/uL (130-400); RED BLOOD COUNT 4.32 10*6/uL (4.10-5.10); RED CELL DISTRI WIDTH 15.4 % (0-14.5)
[2019-04-22 21:46] LABS: ACT PARTIAL THROMBO TIME 25.7 SECONDS (20.0-32.1); INTERNATIONAL NORM RATIO 0.9 (2.0-3.5)
[2019-04-22 21:50] LABS: ALBUMIN 3.3 gm/dl (3.1-4.5); ALKALINE PHOSPHATASE 108 U/L (45-117); BUN 7 mg/dl (7-24); CHLORIDE 106 mmol/L (98-107); CREATININE 0.63 mg/dL (0.55-1.02); POTASSIUM 3.9 mmol/L (3.5-5.1); SGOT/AST 9 IU/L (3-35); SGPT/ALT 20 U/L (12-78); SODIUM 138 mmol/L (136-145); TOTAL PROTEIN 6.7 gm/dL (6.4-8.2)
[2019-04-22 21:53] LABS: TROPONIN I < 0.015 ng/ml (<0.045)
[2019-04-22 22:47] LABS: BILIRUBIN NEGATIVE (NEGATIVE); BLOOD 3+ (NEGATIVE); CLARITY SL CLOUDY (CLEAR); COLOR YELLOW (YELLOW); GLUCOSE NEGATIVE (NEGATIVE); KETONE NEGATIVE (NEGATIVE); LEUKO ESTERASE NEGATIVE (NEGATIVE); NITRITE NEGATIVE (NEGATIVE); SPECIFIC GRAVITY 1.015 (1.005-1.030); UROBILINOGEN 0.2 E.U./dl (0.2-1.0)
[2019-04-22 22:54] LABS: BACTERIA TRACE; RBC TNTC rbc/hpf (0-2); WBC 0-2 wbc/hpf (0-5)
[2019-04-22] MEDS ORDERED: NAPROSYN EC375 MG PO (23:41)
== END 2019-04-23 01:00 | disposition home or self-care (01) ==
LOC: ED 21:01
PROVIDERS: Emergency Medicine Emergency Medical Services
DX: M94.0 Chondrocostal junction syndrome [Tietze] (principal); J44.9 Chronic obstructive pulmonary disease, unspecified; K21.9 Gastro-esophageal reflux disease without esophagitis; E78.5 Hyperlipidemia, unspecified; E03.9 Hypothyroidism, unspecified; E66.9 Obesity, unspecified; G40.909 Epilepsy, unspecified, not intractable, without status epilepticus; F17.200 Nicotine dependence, unspecified, uncomplicated; Z68.35 Body mass index [BMI] 35.0-35.9, adult; Z90.49 Acquired absence of other specified parts of digestive tract; Z88.6 Allergy status to analgesic agent; Z88.8 Allergy status to other drugs, medicaments and biological substances; Z79.899 Other long term (current) drug therapy

== ENCOUNTER 2019-05-30 13:57 | Emergency (ER) | payer MEDICAID ==
[~2019-05-30] VITALS: Ht 160 cm; Wt 90.7 kg
[~2019-05-30 13:57] MED LIST changes: +CLONAZEPAM0.5 M2 PO; +NAPROSYN EC375 MG PO
[2019-05-30] MEDS ORDERED: HORIZANT300 M1 PO (14:08)
[2019-05-30 14:58] VITALS: BP 122/69
[2019-05-30 15:04] LABS: BASO # 0.1 10*3/uL (0.0-0.1); BASO % 0.4 % (0.0-1.0); EOS # 0.2 10*3/uL (0.0-0.4); EOS % 1.5 % (1.0-4.0); HEMATOCRIT 37.3 % (37.0-47.0); HEMOGLOBIN 11.7 g/dl (12.0-16.0); LYMPH # 2.9 10*3/uL (1.3-4.4); LYMPH % 20.3 % (27.0-41.0); MEAN CELL VOLUME 80.6 fl (81.0-99.0); MEAN CORPUSCULAR HGB 25.3 pg (27.0-31.0); MEAN CORPUSCULAR HGB CONC 31.4 g/dl (33.0-37.0); MEAN PLATELET VOLUME 10.5 fl (9.6-12.3); MONO # 0.7 10*3/uL (0.1-1.0); MONO % 5.2 % (3.0-9.0); NEUT # 10.3 10*3/uL (2.3-7.9); PLATELET COUNT AUTOMATED 311 10*3/uL (130-400); RED BLOOD COUNT 4.63 10*6/uL (4.10-5.10); RED CELL DISTRI WIDTH 15.7 % (0-14.5); WHITE BLOOD COUNT 14.3 10*3/uL (4.8-10.8)
[2019-05-30 15:12] LABS: ACT PARTIAL THROMBO TIME 21.4 SECONDS (20.0-32.1); INTERNATIONAL NORM RATIO 0.9 (2.0-3.5)
[2019-05-30 15:18] LABS: ALBUMIN 3.4 gm/dl (3.1-4.5); ALKALINE PHOSPHATASE 124 U/L (45-117); BUN 11 mg/dl (7-24); CHLORIDE 104 mmol/L (98-107); CREATININE 0.61 mg/dL (0.55-1.02); POTASSIUM 4.9 mmol/L (3.5-5.1); SGOT/AST 36 IU/L (3-35); SGPT/ALT 34 U/L (12-78); SODIUM 137 mmol/L (136-145); TOTAL PROTEIN 7.2 gm/dL (6.4-8.2)
[2019-05-30 15:20] LABS: B-hCG (QUALITATIVE) NEGATIVE (NEGATIVE)
[2019-05-30 17:01] LABS: BILIRUBIN NEGATIVE (NEGATIVE); BLOOD NEGATIVE (NEGATIVE); CLARITY CLOUDY (CLEAR); COLOR YELLOW (YELLOW); GLUCOSE NEGATIVE (NEGATIVE); KETONE NEGATIVE (NEGATIVE); LEUKO ESTERASE TRACE (NEGATIVE); NITRITE NEGATIVE (NEGATIVE); UROBILINOGEN 0.2 E.U./dl (0.2-1.0)
[2019-05-30 17:17] LABS: EPITHELIAL CELLS TNTC
[2019-05-30 17:21] LABS: URINE AMPHETAMINES < 1000 (1000ng/ml); URINE BARBITURATES < 200 (200ng/ml); URINE BENZODIAZEPINES < 200 (200ng/ml); URINE CANNABINOIDS (THC) < 50 (50ng/ml); URINE COCAINE < 300 (300ng/ml); URINE METHADONE < 300 (300ng/ml); URINE OPIATES < 300 (300ng/ml)
[2019-05-30 17:22] LABS: URINE PHENCYCLIDINE < 25 (25ng/ml)
[2019-05-30] MEDS ORDERED: KEPPRA500 MG PO (17:31)
== END 2019-05-30 17:55 ==
LOC: ED 13:57
PROVIDERS: Internal Medicine
DX: G40.909 Epilepsy, unspecified, not intractable, without status epilepticus (principal); Z90.49 Acquired absence of other specified parts of digestive tract; J44.9 Chronic obstructive pulmonary disease, unspecified; K21.9 Gastro-esophageal reflux disease without esophagitis; E78.5 Hyperlipidemia, unspecified; E03.9 Hypothyroidism, unspecified; F17.200 Nicotine dependence, unspecified, uncomplicated; Z88.6 Allergy status to analgesic agent; Z88.8 Allergy status to other drugs, medicaments and biological substances; Z79.899 Other long term (current) drug therapy

== ENCOUNTER 2019-07-20 08:38 | Emergency (ER) | payer MEDICAID ==
[~2019-07-20] VITALS: Ht 160 cm; Wt 93.9 kg
--- NOTE | ~2019-07-20 | EKG ---
[place], [place] ELECTROCARDIOGRAM REPORT NAME: MOE AUSTIN UNIT #: [id number] ROOM: DOCTOR: EPIPHANY DRAFT REPORT BIRTHDATE: [birth year] [facility] Test Date: 2019-07-20 Test Time: 09:28:10 Pat Name: MOE AUSTIN Department: Room: Gender: F Cash Van Salesperson: : 1980 Requested By: AMELIE SORIA Order Number: [id number] Reading MD: Ming Tinsley Measurements Intervals [place] Rate: 73 P: 37 [place]: 152 QRS: 51 QRSD: 77 T: 78 QT: 375 QTc: 414 Interpretive Statements Sinus rhythm Low voltage, precordial leads Compared to ECG 05/30/2019 14:30:40 Low QRS voltage now present T-wave abnormality no longer present Electronically Signed On 07-22-2019 9:24:24 PST by Ming Tinsley CM:EKGRPT:ELECTROCARDIOGRAM REPORT 7 3 AMELIE MOYA DRAFT REPORT AMELIE SORIA MD
[2019-07-20 08:38] VITALS: BP 144/82
[~2019-07-20 08:38] MED LIST changes: +HORIZANT300 M1 PO; +KEPPRA500 MG PO
[2019-07-20 09:49] LABS: BASO % 0.3 % (0.0-1.0); EOS # 0.3 10*3/uL (0.0-0.4); EOS % 2.3 % (1.0-4.0); HEMATOCRIT 35.8 % (37.0-47.0); LYMPH # 2.8 10*3/uL (1.3-4.4); LYMPH % 24.7 % (27.0-41.0); MEAN CELL VOLUME 80.6 fl (81.0-99.0); MEAN CORPUSCULAR HGB 24.8 pg (27.0-31.0); MEAN CORPUSCULAR HGB CONC 30.7 g/dl (33.0-37.0); MEAN PLATELET VOLUME 10.1 fl (9.6-12.3); MONO # 0.6 10*3/uL (0.1-1.0); NEUT # 7.7 10*3/uL (2.3-7.9); NEUT % 66.8 % (47.0-73.0); PLATELET COUNT AUTOMATED 343 10*3/uL (130-400); RED BLOOD COUNT 4.44 10*6/uL (4.10-5.10); RED CELL DISTRI WIDTH 16.4 % (0-14.5); WHITE BLOOD COUNT 11.5 10*3/uL (4.8-10.8)
[2019-07-20 10:01] LABS: ALBUMIN 3.2 gm/dl (3.1-4.5); ALKALINE PHOSPHATASE 110 U/L (45-117); BUN 6 mg/dl (7-24); CHLORIDE 107 mmol/L (98-107); CREATININE 0.64 mg/dL (0.55-1.02); POTASSIUM 4.4 mmol/L (3.5-5.1); SGOT/AST 18 IU/L (3-35); SGPT/ALT 29 U/L (12-78); SODIUM 140 mmol/L (136-145); TOTAL PROTEIN 6.6 gm/dL (6.4-8.2)
[2019-07-20 10:18] LABS: BILIRUBIN NEGATIVE (NEGATIVE); BLOOD NEGATIVE (NEGATIVE); CLARITY SL CLOUDY (CLEAR); COLOR YELLOW (YELLOW); GLUCOSE NEGATIVE (NEGATIVE); KETONE NEGATIVE (NEGATIVE); LEUKO ESTERASE NEGATIVE (NEGATIVE); NITRITE NEGATIVE (NEGATIVE); UROBILINOGEN 0.2 E.U./dl (0.2-1.0)
[2019-07-20 10:27] LABS: BACTERIA TRACE; EPITHELIAL CELLS TNTC; RBC 0-2 rbc/hpf (0-2); WBC 0-2 wbc/hpf (0-5)
[2019-07-20 10:30] LABS: URINE AMPHETAMINES < 1000 (1000ng/ml); URINE BARBITURATES < 200 (200ng/ml); URINE BENZODIAZEPINES < 200 (200ng/ml); URINE CANNABINOIDS (THC) < 50 (50ng/ml); URINE COCAINE < 300 (300ng/ml); URINE METHADONE < 300 (300ng/ml); URINE OPIATES < 300 (300ng/ml)
[2019-07-20 10:36] LABS: URINE PHENCYCLIDINE < 25 (25ng/ml)
== END 2019-07-20 10:44 | disposition home or self-care (01) ==
LOC: ED 08:38
PROVIDERS: Emergency Medicine
DX: R53.83 Other fatigue (principal); R42 Dizziness and giddiness; R51 Headache; E11.65 Type 2 diabetes mellitus with hyperglycemia; J44.9 Chronic obstructive pulmonary disease, unspecified; K21.9 Gastro-esophageal reflux disease without esophagitis; E78.5 Hyperlipidemia, unspecified; E03.9 Hypothyroidism, unspecified; E66.9 Obesity, unspecified; G40.909 Epilepsy, unspecified, not intractable, without status epilepticus; F17.200 Nicotine dependence, unspecified, uncomplicated; Z88.8 Allergy status to other drugs, medicaments and biological substances; Z79.899 Other long term (current) drug therapy; Z68.35 Body mass index [BMI] 35.0-35.9, adult; Z90.49 Acquired absence of other specified parts of digestive tract

== ENCOUNTER 2019-08-22 11:05 | Inpatient (IN) | payer MEDICAID ==
[~2019-08-22] VITALS: Ht 160 cm; Wt 91.3 kg
[2019-08-22 11:06] VITALS: BP 122/50
[2019-08-22 12:02] LABS: BILIRUBIN NEGATIVE (NEGATIVE); BLOOD NEGATIVE (NEGATIVE); CLARITY SL CLOUDY (CLEAR); COLOR YELLOW (YELLOW); GLUCOSE NEGATIVE (NEGATIVE); KETONE NEGATIVE (NEGATIVE); LEUKO ESTERASE TRACE (NEGATIVE); NITRITE NEGATIVE (NEGATIVE); UROBILINOGEN 0.2 E.U./dl (0.2-1.0)
[2019-08-22 12:12] LABS: ACT PARTIAL THROMBO TIME 27.2 SECONDS (20.0-32.1); ALBUMIN 3.5 gm/dl (3.1-4.5); ALKALINE PHOSPHATASE 119 U/L (45-117); BUN 9 mg/dl (7-24); CHLORIDE 107 mmol/L (98-107); CREATININE 0.86 mg/dL (0.55-1.02); INTERNATIONAL NORM RATIO 0.9 (2.0-3.5); LIPASE 106 U/L (73-393); POTASSIUM 4.1 mmol/L (3.5-5.1); SGOT/AST 11 IU/L (3-35); SGPT/ALT 27 U/L (12-78); SODIUM 138 mmol/L (136-145); TOTAL PROTEIN 7.2 gm/dL (6.4-8.2)
[2019-08-22 12:16] LABS: BACTERIA 1+
[2019-08-22 12:17] LABS: TROPONIN I < 0.015 ng/ml (<0.045)
[2019-08-22 12:45] LABS: BASO # 0.1 10*3/uL (0.0-0.1); BASO % 0.4 % (0.0-1.0); EOS # 0.2 10*3/uL (0.0-0.4); EOS % 1.4 % (1.0-4.0); HEMATOCRIT 38.4 % (37.0-47.0); HEMOGLOBIN 11.8 g/dl (12.0-16.0); LYMPH # 3.1 10*3/uL (1.3-4.4); LYMPH % 23.8 % (27.0-41.0); MEAN CORPUSCULAR HGB 24.9 pg (27.0-31.0); MEAN CORPUSCULAR HGB CONC 30.7 g/dl (33.0-37.0); MONO # 0.7 10*3/uL (0.1-1.0); MONO % 5.7 % (3.0-9.0); NEUT # 8.7 10*3/uL (2.3-7.9); NEUT % 68.2 % (47.0-73.0); PLATELET COUNT AUTOMATED 371 10*3/uL (130-400); RED BLOOD COUNT 4.74 10*6/uL (4.10-5.10); RED CELL DISTRI WIDTH 16.3 % (0-14.5); WHITE BLOOD COUNT 12.8 10*3/uL (4.8-10.8)
[2019-08-22 13:30] VITALS: BP 90/58
--- NOTE | 2019-08-22 13:53 | NUR ---
[facility] 39, admitted to , under the services of CHANELLE Moran DO with a diagnosis of CHEST PAIN. Chief complaint is CHEST PAIN. Patient arrived via ambulatory from ER. Monitor applied. Initial assessment completed. Vital signs taken and recorded. CHANELLE MORAN DO notified of admission to the unit. Orders received. See assessment for past medical history, medications and allergies. Patient and/or family oriented to unit. [facility] Clothing/patient valuable form completed. KENZIE WINTERS
[2019-08-22] MEDS ORDERED: KLONOPIN0.5 MG PO (14:10)
[2019-08-22] MEDS ORDERED: CYMBALTA30 MG PO (14:11)
[2019-08-22] MEDS ORDERED: GLUCOPHAGE500 MG PO (14:12)
[2019-08-22] MEDS ORDERED: METFORMIN HYDR500 MG PO (14:12)
[2019-08-22] MEDS ORDERED: ABILIFY30 MG PO (14:13)
--- NOTE | 2019-08-22 14:13 | NUR ---
MED REC UPDATED PER POLICY.
[2019-08-22 14:21] VITALS: BP 118/78
[2019-08-22 16:00] VITALS: BP 118/78
--- NOTE | 2019-08-22 19:20 | NUR ---
REPORT RECEIVED FROM KENZIE OAKLEY. PT LYING IN BED AT THIS TIME. VOICES NO COMPLAINTS AT THIS TIME. CALL LIGHT IN REACH, WHITE BOARD UPDATED.
[2019-08-22 20:00] VITALS: BP 103/53
[2019-08-23] VITALS: BP 110/57
--- NOTE | 2019-08-23 04:46 | NUR ---
24 HR chart check completed.
--- NOTE | 2019-08-23 04:48 | NUR ---
PT SLEEPING. RESPIRATIONS EASY AND UNLABORED. CALL LIGHT IN REACH.
[2019-08-23 06:22] LABS: BASO % 0.2 % (0.0-1.0); HEMOGLOBIN 12.2 g/dl (12.0-16.0); LYMPH % 11.1 % (27.0-41.0); MEAN CELL VOLUME 80.8 fl (81.0-99.0); MEAN CORPUSCULAR HGB 24.6 pg (27.0-31.0); MEAN CORPUSCULAR HGB CONC 30.5 g/dl (33.0-37.0); MONO # 0.4 10*3/uL (0.1-1.0); NEUT # 15.8 10*3/uL (2.3-7.9); PLATELET COUNT AUTOMATED 397 10*3/uL (130-400); RED BLOOD COUNT 4.95 10*6/uL (4.10-5.10); RED CELL DISTRI WIDTH 16.1 % (0-14.5); WHITE BLOOD COUNT 18.3 10*3/uL (4.8-10.8)
[2019-08-23 06:42] LABS: ALBUMIN 3.5 gm/dl (3.1-4.5); BUN 11 mg/dl (7-24); CHLORIDE 105 mmol/L (98-107); CHOLESTEROL 175 mg/dL (<200); CREATININE 0.73 mg/dL (0.55-1.02); PHOSPHOROUS 3.3 mg/dL (2.5-4.9); POTASSIUM 4.3 mmol/L (3.5-5.1); SGOT/AST 11 IU/L (3-35); SGPT/ALT 29 U/L (12-78); SODIUM 137 mmol/L (136-145); TRIGLYCERIDES 141 mg/dl (<150); VLDL CHOLESTEROL 28 mg/dL (6-40)
[2019-08-23 06:49] LABS: ALKALINE PHOSPHATASE 124 U/L (45-117); FREE T4 1.05 ng/dl (0.76-1.46); HDL CHOLESTEROL 35 mg/dl (40-60); LDL CHOLESTEROL 112 mg/dL (9-159); THYROID STIM HORMONE (HS) 0.667 uIU/ml (0.358-4.75); TOTAL PROTEIN 7.6 gm/dL (6.4-8.2)
[2019-08-23 08:00] VITALS: BP 123/56
[2019-08-23 08:06] LABS: VITAMIN D, 25-HYDROXY 42.3 ng/mL (30-100)
--- NOTE | 2019-08-23 08:37 | NUR ---
MARIE HARO IN TO SEE PATIENT REGARDING PLAN OF CARE.
[2019-08-23] MEDS ORDERED: PREDNISONE10 MG PO (09:50)
[2019-08-23] MEDS ORDERED: ZITHROMAX500 MG PO (09:50)
--- NOTE | 2019-08-23 11:37 | NUR ---
Discharge instructions reviewed with patient/family. Patient receptive and verbalizes understanding. Follow-up care arranged. Written instructions given to patient/family. KENZIE WINTERS.
== END 2019-08-23 11:37 | disposition home or self-care (01) | DRG 205 ==
LOC: ED 11:05 → EDHOLD 13:09 → 4E 13:09
PROVIDERS: Physician Assistant; Registered Nurse; ADMIT Family Medicine
DX: M94.0 Chondrocostal junction syndrome [Tietze] (principal); J18.9 Pneumonia, unspecified organism; R65.10 Systemic inflammatory response syndrome (SIRS) of non-infectious origin without acute organ dysfunction; J44.1 Chronic obstructive pulmonary disease with (acute) exacerbation; J44.0 Chronic obstructive pulmonary disease with (acute) lower respiratory infection; E44.0 Moderate protein-calorie malnutrition; E78.5 Hyperlipidemia, unspecified; E03.9 Hypothyroidism, unspecified; G40.909 Epilepsy, unspecified, not intractable, without status epilepticus; E11.649 Type 2 diabetes mellitus with hypoglycemia without coma; K21.9 Gastro-esophageal reflux disease without esophagitis; F32.9 Major depressive disorder, single episode, unspecified; F41.9 Anxiety disorder, unspecified; D72.829 Elevated white blood cell count, unspecified; E55.9 Vitamin D deficiency, unspecified; E11.65 Type 2 diabetes mellitus with hyperglycemia; F43.10 Post-traumatic stress disorder, unspecified; T38.0X5A Adverse effect of glucocorticoids and synthetic analogues, initial encounter; Y92.89 Other specified places as the place of occurrence of the external cause; Z79.84 Long term (current) use of oral hypoglycemic drugs; Z79.4 Long term (current) use of insulin; Z88.8 Allergy status to other drugs, medicaments and biological substances; Z90.49 Acquired absence of other specified parts of digestive tract; Z98.51 Tubal ligation status; Z82.49 Family history of ischemic heart disease and other diseases of the circulatory system; Z83.3 Family history of diabetes mellitus; Z82.0 Family history of epilepsy and other diseases of the nervous system; Z80.3 Family history of malignant neoplasm of breast; Z68.35 Body mass index [BMI] 35.0-35.9, adult; Z79.899 Other long term (current) drug therapy

== ENCOUNTER 2021-05-30 13:42 | Emergency (ER) | payer MEDICAID ==
[~2021-05-30] VITALS: Ht 160 cm; Wt 90.7 kg
[~2021-05-30 13:42] MED LIST changes: +ABILIFY30 MG PO; +CYMBALTA30 MG PO; +GLUCOPHAGE500 MG PO; +KLONOPIN0.5 MG PO; +METFORMIN HYDR500 MG PO; +ZITHROMAX500 MG PO
[2021-05-30 14:03] VITALS: BP 127/82
== END 2021-05-30 14:40 | disposition left against medical advice (07) ==
LOC: ED 13:42
DX: R11.2 Nausea with vomiting, unspecified (principal); R19.7 Diarrhea, unspecified; Z53.21 Procedure and treatment not carried out due to patient leaving prior to being seen by health care provider

== ENCOUNTER → 2021-06-19 | Outpatient (CLI) | payer MEDICAID | END | disposition home or self-care (01) | LOC: COVID19 17:31 | PROVIDERS: ATTEND Internal Medicine | DX: Z11.52 Encounter for screening for COVID-19 (principal) ==

== ENCOUNTER → 2021-08-21 | Outpatient (CLI) | payer MEDICAID | END | disposition home or self-care (01) | LOC: COVID19 15:43 | PROVIDERS: ATTEND Internal Medicine | DX: Z11.52 Encounter for screening for COVID-19 (principal) ==

== ENCOUNTER 2021-09-19 08:50 | Emergency (ER) | payer MEDICAID ==
[~2021-09-19] VITALS: Wt 79.4 kg
[2021-09-19 09:00] VITALS: BP 109/59
[2021-09-19 10:30] LABS: BILIRUBIN Negative (Negative); BLOOD 3+ (Negative); CLARITY Cloudy (Clear); COLOR Yellow (Yellow); GLUCOSE Negative (Negative); KETONE Negative (Negative); LEUKO ESTERASE 3+ (Negative); NITRITE Negative (Negative); SPECIFIC GRAVITY <= 1.005 (1.001-1.030); UROBILINOGEN 0.2 E.U./dl (0.0-1.0)
[2021-09-19 10:45] LABS: WBC TNTC wbc/hpf (0-5)
[2021-09-19] MEDS ORDERED: OMNICEF300 MG PO (10:50)
== END 2021-09-19 10:57 | disposition home or self-care (01) ==
LOC: ED 08:50
PROVIDERS: Student in an Organized Health Care Education/Training Program
DX: N39.0 Urinary tract infection, site not specified (principal); Z88.8 Allergy status to other drugs, medicaments and biological substances; Z79.899 Other long term (current) drug therapy

== ENCOUNTER 2021-11-25 11:51 | Emergency (ER) | payer MEDICAID ==
[~2021-11-25] VITALS: Ht 160 cm; Wt 77.1 kg
[~2021-11-25 11:51] MED LIST changes: +OMNICEF300 MG PO
[2021-11-25 11:58] VITALS: BP 121/60
[2021-11-25 12:32] LABS: BASO % 0.4 % (0.0-1.0); EOS # 0.1 10*3/uL (0.0-0.4); EOS % 0.7 % (1.0-4.0); HEMATOCRIT 34.3 % (37.0-47.0); LYMPH # 1.1 10*3/uL (1.3-4.4); LYMPH % 14.2 % (27.0-41.0); MEAN CELL VOLUME 76.7 fl (81.0-99.0); MEAN CORPUSCULAR HGB 24.8 pg (27.0-31.0); MEAN CORPUSCULAR HGB CONC 32.4 g/dl (33.0-37.0); MEAN PLATELET VOLUME 9.3 fl (9.6-12.3); MONO # 0.5 10*3/uL (0.1-1.0); MONO % 6.4 % (3.0-9.0); NEUT # 5.8 10*3/uL (2.3-7.9); NEUT % 77.6 % (47.0-73.0); PLATELET COUNT AUTOMATED 355 10*3/uL (130-400); RED BLOOD COUNT 4.47 10*6/uL (4.10-5.10); RED CELL DISTRI WIDTH 15.7 % (0-14.5); WHITE BLOOD COUNT 7.5 10*3/uL (4.8-10.8)
[2021-11-25 12:44] LABS: ALKALINE PHOSPHATASE 111 U/L (45-117); BUN 5 mg/dl (7-24); CREATININE 0.72 mg/dL (0.55-1.02); SGOT/AST 26 IU/L (3-35); SGPT/ALT 27 U/L (12-78); TOTAL PROTEIN 7.5 gm/dL (6.4-8.2)
[2021-11-25 12:49] LABS: CHLORIDE 103 mmol/L (98-107); POTASSIUM 3.2 mmol/L (3.5-5.1); SODIUM 137 mmol/L (136-145)
== END 2021-11-25 14:03 | disposition home or self-care (01) ==
LOC: ED 11:51
PROVIDERS: Physician Assistant
DX: N93.9 Abnormal uterine and vaginal bleeding, unspecified (principal); Z88.8 Allergy status to other drugs, medicaments and biological substances; Z79.899 Other long term (current) drug therapy; Z90.49 Acquired absence of other specified parts of digestive tract; Z98.890 Other specified postprocedural states; Z87.891 Personal history of nicotine dependence

== ENCOUNTER 2022-03-15 14:23 | Emergency (ER) | payer MEDICAID ==
[~2022-03-15] VITALS: Wt 74.8 kg
[2022-03-15 14:58] VITALS: BP 109/71
[2022-03-15 15:09] LABS: BASO # 0.1 10*3/uL (0.0-0.1); BASO % 0.5 % (0.0-1.0); EOS # 0.2 10*3/uL (0.0-0.4); EOS % 1.8 % (1.0-4.0); HEMATOCRIT 38.7 % (37.0-47.0); LYMPH # 3.1 10*3/uL (1.3-4.4); LYMPH % 24.5 % (27.0-41.0); MEAN CELL VOLUME 78.2 fl (81.0-99.0); MEAN CORPUSCULAR HGB 24.2 pg (27.0-31.0); MEAN PLATELET VOLUME 9.2 fl (9.6-12.3); MONO # 0.6 10*3/uL (0.1-1.0); MONO % 4.8 % (3.0-9.0); NEUT # 8.5 10*3/uL (2.3-7.9); NEUT % 67.8 % (47.0-73.0); PLATELET COUNT AUTOMATED 429 10*3/uL (130-400); RED BLOOD COUNT 4.95 10*6/uL (4.10-5.10); RED CELL DISTRI WIDTH 16.5 % (0-14.5); WHITE BLOOD COUNT 12.5 10*3/uL (4.8-10.8)
[2022-03-15 15:23] LABS: ALKALINE PHOSPHATASE 108 U/L (45-117); BUN 5 mg/dl (7-24); CHLORIDE 102 mmol/L (98-107); POTASSIUM 3.1 mmol/L (3.5-5.1); SGOT/AST 13 IU/L (3-35); SGPT/ALT 18 U/L (12-78); SODIUM 138 mmol/L (136-145); TOTAL PROTEIN 7.3 gm/dL (6.4-8.2)
[2022-03-15 15:26] LABS: BILIRUBIN Negative (Negative); BLOOD Trace-Lysed (Negative); CLARITY Cloudy (Clear); COLOR Yellow (Yellow); GLUCOSE Negative (Negative); KETONE Negative (Negative); LEUKO ESTERASE 2+ (Negative); NITRITE Negative (Negative); UROBILINOGEN 0.2 E.U./dl (0.0-1.0)
[2022-03-15 15:33] LABS: BACTERIA 2+; WBC 31-40 wbc/hpf (0-5)
== END 2022-03-15 16:43 | disposition left against medical advice (07) ==
LOC: ED 14:23
PROVIDERS: Emergency Medicine
DX: R11.0 Nausea (principal); K21.9 Gastro-esophageal reflux disease without esophagitis; E78.5 Hyperlipidemia, unspecified; E03.9 Hypothyroidism, unspecified; E11.9 Type 2 diabetes mellitus without complications; G40.909 Epilepsy, unspecified, not intractable, without status epilepticus; Z90.49 Acquired absence of other specified parts of digestive tract; Z98.51 Tubal ligation status; Z98.890 Other specified postprocedural states

== ENCOUNTER 2022-05-03 17:02 | Emergency (ER) | payer MEDICAID ==
[~2022-05-03] VITALS: Ht 162.5 cm; Wt 74.8 kg
[2022-05-03 17:53] LABS: BASO % 0.2 % (0.0-1.0); EOS # 0.1 10*3/uL (0.0-0.4); EOS % 0.9 % (1.0-4.0); HEMATOCRIT 41.8 % (37.0-47.0); LYMPH # 2.2 10*3/uL (1.3-4.4); LYMPH % 16.5 % (27.0-41.0); MEAN CELL VOLUME 80.1 fl (81.0-99.0); MEAN CORPUSCULAR HGB 24.7 pg (27.0-31.0); MEAN CORPUSCULAR HGB CONC 30.9 g/dl (33.0-37.0); MEAN PLATELET VOLUME 9.3 fl (9.6-12.3); MONO # 0.5 10*3/uL (0.1-1.0); MONO % 4.1 % (3.0-9.0); NEUT # 10.4 10*3/uL (2.3-7.9); NEUT % 77.9 % (47.0-73.0); PLATELET COUNT AUTOMATED 442 10*3/uL (130-400); RED BLOOD COUNT 5.22 10*6/uL (4.10-5.10); RED CELL DISTRI WIDTH 16.6 % (0-14.5); WHITE BLOOD COUNT 13.3 10*3/uL (4.8-10.8)
[2022-05-03 18:03] LABS: ACT PARTIAL THROMBO TIME 26.1 SECONDS (20.0-32.1)
[2022-05-03 18:35] LABS: BUN 5 mg/dl (7-24); CHLORIDE 105 mmol/L (98-107); LIPASE 92 U/L (73-393); POTASSIUM 3.7 mmol/L (3.5-5.1); SGOT/AST 11 IU/L (3-35); SGPT/ALT 19 U/L (12-78); SODIUM 136 mmol/L (136-145)
[2022-05-03 18:37] LABS: ALKALINE PHOSPHATASE 128 U/L (45-117); TOTAL PROTEIN 7.9 gm/dL (6.4-8.2)
[2022-05-03 18:47] LABS: BETA-HCG, QUANT < 1.0 mIU/mL (1-3)
[2022-05-03 19:48] VITALS: BP 110/60
== END 2022-05-03 19:49 | disposition left against medical advice (07) ==
LOC: ED 17:02
PROVIDERS: Emergency Medicine
DX: T40.601A Poisoning by unspecified narcotics, accidental (unintentional), initial encounter (principal); Z88.8 Allergy status to other drugs, medicaments and biological substances; Z79.899 Other long term (current) drug therapy; Z98.890 Other specified postprocedural states; Z98.51 Tubal ligation status; Z90.49 Acquired absence of other specified parts of digestive tract; Z87.891 Personal history of nicotine dependence; Y92.89 Other specified places as the place of occurrence of the external cause

== ENCOUNTER 2022-06-22 14:28 | Emergency (ER) | payer MEDICAID ==
[~2022-06-22] VITALS: Ht 160 cm; Wt 68.0 kg
[2022-06-22 14:43] VITALS: BP 119/95
== END 2022-06-22 15:50 | disposition left against medical advice (07) ==
LOC: ED 14:28
DX: F41.9 Anxiety disorder, unspecified (principal); Z53.21 Procedure and treatment not carried out due to patient leaving prior to being seen by health care provider

== ENCOUNTER → 2022-10-05 | Outpatient (CLI) | payer MEDICAID ==
[2022-10-05 09:08] LABS: BASO # 0.1 10*3/uL (0.0-0.1); BASO % 0.6 % (0.0-1.0); EOS # 0.2 10*3/uL (0.0-0.4); EOS % 1.6 % (1.0-4.0); HEMATOCRIT 38.2 % (37.0-47.0); LYMPH # 3.1 10*3/uL (1.3-4.4); MEAN CELL VOLUME 81.3 fl (81.0-99.0); MEAN CORPUSCULAR HGB 25.3 pg (27.0-31.0); MEAN CORPUSCULAR HGB CONC 31.2 g/dl (33.0-37.0); MEAN PLATELET VOLUME 9.3 fl (9.6-12.3); MONO # 0.6 10*3/uL (0.1-1.0); MONO % 4.6 % (3.0-9.0); NEUT % 66.4 % (47.0-73.0); PLATELET COUNT AUTOMATED 498 10*3/uL (130-400); RED CELL DISTRI WIDTH 16.7 % (0-14.5)
[2022-10-05 09:32] LABS: ALKALINE PHOSPHATASE 121 U/L (46-116); BUN 6 mg/dl (9-23); CHLORIDE 103 mmol/L (98-107); CHOLESTEROL 216 mg/dL (<200); LDL CHOLESTEROL 114 mg/dL (9-159); POTASSIUM 4.6 mmol/L (3.4-5.1); SGPT/ALT 19 U/L (10-49); TRIGLYCERIDES 302 mg/dl (<150)
== END | disposition home or self-care (01) ==
LOC: LAB 08:37
PROVIDERS: ATTEND Nurse Practitioner
DX: Z51.81 Encounter for therapeutic drug level monitoring (principal); Z79.899 Other long term (current) drug therapy

== ENCOUNTER 2022-12-09 04:57 | Emergency (ER) | payer OTHER ==
[~2022-12-09] VITALS: Ht 162.5 cm; Wt 77.1 kg
[2022-12-09 05:17] VITALS: BP 188/90
[2022-12-09] MEDS ORDERED: SEPTDS PO (05:19)
== END 2022-12-09 05:31 | disposition home or self-care (01) ==
LOC: ED 04:57
DX: L02.211 Cutaneous abscess of abdominal wall (principal); E11.9 Type 2 diabetes mellitus without complications; F32.A Depression, unspecified; F41.9 Anxiety disorder, unspecified; Z88.8 Allergy status to other drugs, medicaments and biological substances; Z88.6 Allergy status to analgesic agent; Z90.49 Acquired absence of other specified parts of digestive tract; Z98.51 Tubal ligation status; Z98.890 Other specified postprocedural states; F17.200 Nicotine dependence, unspecified, uncomplicated; F10.90 Alcohol use, unspecified, uncomplicated

== ENCOUNTER 2023-03-01 21:20 | Emergency (ER) | payer OTHER ==
[~2023-03-01] VITALS: Ht 160 cm; Wt 71.2 kg
[2023-03-01 21:24] VITALS: BP 107/60
== END 2023-03-01 22:58 | disposition left against medical advice (07) ==
LOC: ED 21:20
DX: S00.83XA Contusion of other part of head, initial encounter (principal); S80.212A Abrasion, left knee, initial encounter; S80.211A Abrasion, right knee, initial encounter; M25.511 Pain in right shoulder; M79.641 Pain in right hand; F17.200 Nicotine dependence, unspecified, uncomplicated; Z88.6 Allergy status to analgesic agent; Z88.8 Allergy status to other drugs, medicaments and biological substances; Z79.899 Other long term (current) drug therapy; Z98.890 Other specified postprocedural states; Z90.49 Acquired absence of other specified parts of digestive tract; Z98.51 Tubal ligation status; Z53.29 Procedure and treatment not carried out because of patient's decision for other reasons; W01.198A Fall on same level from slipping, tripping and stumbling with subsequent striking against other object, initial encounter; Y93.02 Activity, running; Y92.89 Other specified places as the place of occurrence of the external cause; Y99.8 Other external cause status

== ENCOUNTER 2023-06-02 12:00 | Emergency (ER) | payer OTHER ==
[~2023-06-02] VITALS: Wt 65.8 kg
[2023-06-02 12:05] VITALS: BP 122/56
== END 2023-06-02 13:46 | disposition home or self-care (01) ==
LOC: ED 12:00
DX: T74.21XA Adult sexual abuse, confirmed, initial encounter (principal); F32.A Depression, unspecified; F41.9 Anxiety disorder, unspecified; J44.9 Chronic obstructive pulmonary disease, unspecified; Z88.6 Allergy status to analgesic agent; Z88.5 Allergy status to narcotic agent; Z88.8 Allergy status to other drugs, medicaments and biological substances; Z90.49 Acquired absence of other specified parts of digestive tract; Z98.51 Tubal ligation status; Z98.890 Other specified postprocedural states; F17.200 Nicotine dependence, unspecified, uncomplicated

== ENCOUNTER 2024-01-10 10:39 | Emergency (ER) | payer OTHER ==
[~2024-01-10] VITALS: Wt 89.0 kg
[2024-01-10 11:28] LABS: BASO % 0.3 % (0.0-1.0); EOS # 0.1 10*3/uL (0.0-0.4); EOS % 0.4 % (1.0-4.0); HEMATOCRIT 41.7 % (37.0-47.0); LYMPH # 1.7 10*3/uL (1.3-4.4); LYMPH % 12.2 % (27.0-41.0); MEAN CELL VOLUME 84.1 fl (81.0-99.0); MEAN CORPUSCULAR HGB 25.6 pg (27.0-31.0); MEAN CORPUSCULAR HGB CONC 30.5 g/dl (33.0-37.0); MEAN PLATELET VOLUME 9.5 fl (9.6-12.3); MONO # 0.7 10*3/uL (0.1-1.0); MONO % 5.2 % (3.0-9.0); NEUT # 11.6 10*3/uL (2.3-7.9); NEUT % 81.3 % (47.0-73.0); PLATELET COUNT AUTOMATED 315 10*3/uL (130-400); RED BLOOD COUNT 4.96 10*6/uL (4.10-5.10); RED CELL DISTRI WIDTH 14.5 % (0-14.5); WHITE BLOOD COUNT 14.3 10*3/uL (4.8-10.8)
[2024-01-10] MEDS ORDERED: LORazepam 2 MG/ML VIAL IM ONE (11:35)
[2024-01-10] MEDS ORDERED: diphenhydrAMINE hydrochloride 50 MG/ML VIAL IM ONE (11:35)
[2024-01-10] MEDS ORDERED: Haloperidol Lactate 5 MG/ML AMP IM ONE (11:35)
[2024-01-10 11:38] LABS: ACT PARTIAL THROMBO TIME 29.4 SECONDS (20.0-32.1)
[2024-01-10 11:52] LABS: ALKALINE PHOSPHATASE 95 U/L (46-116); BUN 6 mg/dl (9-23); CHLORIDE 109 mmol/L (98-107); CPK 127 U/L (34-171); ETHYL ALCOHOL 3.5 mg/dl (<3); LIPASE 38 U/L (12-53); POTASSIUM 5.1 mmol/L (3.4-5.1); SGPT/ALT 8 U/L (5-49)
[2024-01-10] MEDS ORDERED: Ziprasidone Mesylate 20 MG VIAL IM ONE (13:55)
[2024-01-10] MEDS ORDERED: LORazepam 2 MG/ML VIAL IV ONE (18:45)
[2024-01-10] MEDS ORDERED: SODIUM CHLORIDE 0.9% 1,000 ML IV ONE (19:00)
[2024-01-10] MEDS ORDERED: DIAZEPAM 10 MG/2 ML SYR IV ONE ×4 (19:05→23:30)
[2024-01-10 19:36] LABS: BILIRUBIN Negative (Negative); BLOOD Negative (Negative); CLARITY Clear (Clear); COLOR Yellow (Yellow); GLUCOSE Negative (Negative); KETONE Negative (Negative); LEUKO ESTERASE Trace (Negative); NITRITE Negative (Negative); PH 5.5 (4.5-8.0); UROBILINOGEN 0.2 E.U./dl (0.0-1.0)
[2024-01-10 19:43] LABS: URINE AMPHETAMINES Positive (1000ng/ml); URINE BARBITURATES Negative (200ng/ml); URINE BENZODIAZEPINES Positive (200ng/ml); URINE CANNABINOIDS (THC) Positive (50ng/ml); URINE COCAINE Negative (300ng/ml); URINE METHADONE Negative (300ng/ml); URINE OPIATES Negative (300ng/ml); URINE PHENCYCLIDINE Negative (25ng/ml)
[2024-01-10 19:50] LABS: BACTERIA 1+; MUCOUS 1+
[2024-01-10] MEDS ORDERED: LEVETIRACETAM 750 MG in SODIUM CHLORIDE 0.9% 100 ML IV ONE ×2 (20:20→20:25)
[2024-01-10] MEDS ORDERED: LEVETIRACETAM 500 MG/5 ML VIAL IV ONE (20:29)
[2024-01-10] MEDS ORDERED: SODIUM CHLORIDE 0.9% 100 ML IV ONE (20:29)
[2024-01-10] MEDS ORDERED: [UNRECOGNIZED DRUG - OTHER] IV ONE (21:35)
[2024-01-10] MEDS ORDERED: DIAZEPAM 2 ML IV ONE (21:42)
[2024-01-11] MEDS ORDERED: DIAZEPAM 10 MG/2 ML SYR IV ONE ×3 (02:10→10:10)
[2024-01-11] MEDS ORDERED: LORazepam 2 MG/ML VIAL IV ONE ×4 (05:25→13:30)
[2024-01-11] MEDS ORDERED: PHENYTOIN 100 MG/2 ML IV ONE (05:25)
[2024-01-11] MEDS ORDERED: ACETAMINOPHEN 650 MG SUPP R ONE (07:45)
[2024-01-11] MEDS ORDERED: REXULTI2 MG PO (11:27)
[2024-01-11] MEDS ORDERED: DIAZEPAM5 MG PO (11:29)
[2024-01-11] MEDS ORDERED: DULOXETINE HCL30 MG PO (11:31)
[2024-01-11 14:59] VITALS: BP 110/57
== END 2024-01-11 16:10 | disposition short-term general hospital (02) ==
LOC: ED 10:39
PROVIDERS: Internal Medicine
DX: G40.901 Epilepsy, unspecified, not intractable, with status epilepticus (principal); E87.20 Acidosis, unspecified; D72.829 Elevated white blood cell count, unspecified; F19.10 Other psychoactive substance abuse, uncomplicated; Z88.6 Allergy status to analgesic agent; Z88.5 Allergy status to narcotic agent; Z88.8 Allergy status to other drugs, medicaments and biological substances; Z90.49 Acquired absence of other specified parts of digestive tract; Z98.51 Tubal ligation status; Z98.890 Other specified postprocedural states; F17.200 Nicotine dependence, unspecified, uncomplicated